=== PATIENT | female | born 1995 | race Caucasian/White ===

== ENCOUNTER 2019-10-26 00:56 | Emergency (ER) | payer BC, OTHER ==
--- NOTE | 2019-10-26 01:35 | EDM.PDOC ---
ED HPI GENERAL MEDICAL PROBLEM - General Chief Complaint: Upper Extremity Injury/Pain Stated Complaint: RIGHT SHOULDER INJURY Time Seen by Provider: 10/26/19 01:29 Source of Information: Reports: Patient History Limitations: Reports: No Limitations - History of Present Illness INITIAL COMMENTS - FREE TEXT/NARRATIVE: This is a 24-year-old female who presents with concerns of right shoulder pain. she was attempting to help a resident from falling when she had a distraction injury of the right arm while getting him into a wheelchair. She felt a pop. She had instant pain. She also feels as if her hand is "asleep' but sensation is intact. right shoulder Pain Score (Numeric/FACES): 6 - Related Data Allergies Allergy/AdvReac Type Severity Reaction Status Date / Time terbinafine Allergy Cannot Verified 10/26/19 01:09 Remember Home Meds: Home Meds Acetaminophen [Tylenol Extra Strength] 1,000 mg PO Q4HR PRN 04/12/18 [History] Ibuprofen 800 mg PO Q6HR PRN 04/12/18 [History] Past Medical History Musculoskeletal History: Reports: Fracture Endocrine/Metabolic History: Reports: Obesity/BMI 30+ - Infectious Disease History Infectious Disease History: Reports: Chicken Pox - Past Surgical History Musculoskeletal Surgical History: Reports: None Other Musculoskeletal Surgeries/Procedures:: abscess removed off of foot. Social & Family History - Tobacco Use Smoking Status *Q: Never Smoker - Caffeine Use Caffeine Use: Reports: Coffee - Recreational Drug Use Recreational Drug Use: No Review of Systems - Review of Systems Review Of Systems: See Below Constitutional: Reports: No Symptoms Eyes: Reports: No Symptoms Ears: Reports: No Symptoms Nose: Reports: No Symptoms Mouth/Throat: Reports: No Symptoms Respiratory: Reports: No Symptoms Cardiovascular: Reports: No Symptoms GI/Abdominal: Reports: No Symptoms Genitourinary: Reports: No Symptoms Musculoskeletal: Reports: Shoulder Pain Skin: Reports: No Symptoms Neurological: Reports: No Symptoms Psychiatric: Reports: No Symptoms ED EXAM, GENERAL - Physical Exam Exam: See Below Exam Limited By: No Limitations General Appearance: Alert, No Apparent Distress Ears: Normal External Exam Nose: Normal Inspection Throat/Mouth: Normal Inspection Head: Atraumatic, Normocephalic Neck: Normal Inspection Respiratory/Chest: No Respiratory Distress Cardiovascular: Regular Rate, Rhythm GI/Abdominal: Soft, Non-Tender Back Exam: Normal Inspection Extremities: Other (right shoulder: no deformity, no bruising or swelling, tenderness over AC joint and lateral humerus. Senation and strength intact through right upper extremity) Neurological: Alert, Oriented Psychiatric: Normal Affect, Normal Mood Skin Exam: Warm, Dry Course - Vital Signs Last Recorded V/S: Last Vital Signs Temp 36.6 C 10/26/19 01:07 Pulse 69 10/26/19 01:07 Resp 20 10/26/19 01:07 BP 133/86 10/26/19 01:07 Pulse Ox 96 10/26/19 01:07 - Orders/Labs/Meds Orders: Active Orders 24 hr Category Date Time Status Shoulder Comp Rt [CR] Stat Exams 10/26/19 01:16 Taken - Re-Assessments/Exams Free Text/Narrative Re-Assessment/Exam: 24 yo presents with acute right shoulder pain Happened after distraction injury while attempted to help [place] from [place] No deformity on exam. Does have some tenderness of the right AC joint, perhaps mild separation. No abnormality on wet read of XR, will send to radiologist for over-read Anticipate discharge with sling, ice, NSAIDS and follow up with PCP 10/26/19 01:51 Departure - Departure Time of Disposition: 01:59 Disposition: Home, Self-Care 01 Clinical Impression: Right shoulder pain Qualifiers: Chronicity: acute Qualified Code(s): M25.511 - Pain in right shoulder - Discharge Information Instructions: Shoulder Pain Referrals: Lindsey Shah PA [Primary Care Provider] - Forms: ED Department Discharge Additional Instructions: Please continue to keep your arm in the sling until your symptoms improve or you see your primary doctor. Ice the shoulder and use tylenol/ibuprofen for pain. Sepsis Event Note - Evaluation Sepsis Screening Result: No Definite Risk - Focused Exam Vital Signs: Vital Signs Temp Pulse Resp BP Pulse Ox 10/26/19 01:07 36.6 C 69 20 133/86 96 Date Exam was Performed: 10/26/19 Time Exam was Performed: 01:59 - My Orders Last 24 Hours: My Active Orders 10/26/19 01:16 Shoulder Comp Rt [CR] Stat - Assessment/Plan Last 24 Hours: My Active Orders 10/26/19 01:16 Shoulder Comp Rt [CR] Stat
--- NOTE | 2019-10-26 02:23 | CRLCR ---
INDICATION: Shoulder injury pain TECHNIQUE: Shoulder radiograph 3 views right COMPARISON: None FINDINGS: Bone: No acute fractures or aggressive bone lesions are identified. Joint: The glenohumeral joint is unremarkable. The acromioclavicular joint is unremarkable. Soft tissue: Unremarkable. The visualized hemithorax is unremarkable in appearance. No radiopaque foreign bodies are seen. IMPRESSION: 1. No acute osseous injuries or abnormalities are noted. Dictated by: Mike Casillas MD @ 10/26/2019 02:22:26 (Electronically Signed)
== END 2019-10-26 02:04 | disposition home or self-care (01) ==
LOC: JP.ED 00:56
DX: M25.511 Pain in right shoulder (principal); E66.9 Obesity, unspecified; Z68.35 Body mass index [BMI] 35.0-35.9, adult; X50.1XXA Overexertion from prolonged static or awkward postures, initial encounter; Y93.89 Activity, other specified
CPT/HCPCS: 73030-RT; 99283-25

== ENCOUNTER 2021-01-31 18:43 | Emergency (ER) | payer OTHER, BC ==
--- NOTE | 2021-01-31 20:25 | EDM.PDOC ---
ED HPI GENERAL MEDICAL PROBLEM - General Chief Complaint: Lower Extremity Injury/Pain Stated Complaint: R ANKLE INJURY Time Seen by Provider: 01/31/21 19:21 Source of Information: Reports: Patient History Limitations: Reports: No Limitations - History of Present Illness INITIAL COMMENTS - FREE TEXT/NARRATIVE: Sharyn is a 25-year-old female presenting to the ED for evaluation of right ankle pain and swelling after being thrown from a horse today while at work. The patient states that her foot went under her causing it invert when she landed on the [place]. Since then she has been unable to bear weight due to pain. Patient denies any previous injury to the ankle. She denies any distal numbness or tingling. She has good distal capillary refill and movement of the toes. He denies any other injury. In addition to training horses, the patient also works in hospice. Right Ankle Pain Score (Numeric/FACES): 6 - Related Data Allergies Allergy/AdvReac Type Severity Reaction Status Date / Time terbinafine Allergy Cannot Verified 01/31/21 19:17 Remember Home Meds: Home Meds LORazepam [Lorazepam] 0.5 mg PO ASDIRECTED 01/31/21 [History] Sertraline HCl [Zoloft] 100 mg PO DAILY 01/31/21 [History] Past Medical History HEENT History: Reports: Allergic Rhinitis Musculoskeletal History: Reports: Fracture Neurological History: Reports: Migraines Psychiatric History: Reports: Anxiety, Depression Endocrine/Metabolic History: Reports: Obesity/BMI 30+ - Infectious Disease History Infectious Disease History: Reports: Chicken Pox, Mononucleosis - Past Surgical History Musculoskeletal Surgical History: Reports: None Other Musculoskeletal Surgeries/Procedures:: abscess removed off of foot. Social & Family History - Tobacco Use Tobacco Use Status *Q: Never Tobacco User - Caffeine Use Caffeine Use: Reports: Coffee Review of Systems - Review of Systems Review Of Systems: See Below Constitutional: Reports: No Symptoms Eyes: Reports: No Symptoms Ears: Reports: No Symptoms Nose: Reports: No Symptoms Mouth/Throat: Reports: No Symptoms Respiratory: Reports: No Symptoms Cardiovascular: Reports: No Symptoms GI/Abdominal: Reports: No Symptoms Genitourinary: Reports: No Symptoms Musculoskeletal: Reports: Joint Pain (Right lateral ankle), Joint Swelling (Right lateral ankle) Skin: Reports: Bruising (Right lateral ankle and foot) Neurological: Reports: No Symptoms Psychiatric: Reports: No Symptoms ED EXAM, GENERAL - Physical Exam Exam: See Below Exam Limited By: No Limitations General Appearance: Alert, Mild Distress Head: Atraumatic, Normocephalic Extremities: Joint Swelling (Mild amount of soft tissue swelling around the lateral malleolus of the right ankle. There is ecchymosis and swelling along the lateral dorsal foot following the anterior talofibular ligament.) Neurological: Alert, Oriented, Normal Cognition, No Motor/Sensory Deficits Skin Exam: Warm, Dry, Ecchymosis (Bruising along the anterior talofibular ligament path of the right lateral dorsal foot.) Course - Vital Signs Last Recorded V/S: Last Vital Signs Temp 37.8 C 01/31/21 19:33 Pulse 94 01/31/21 19:33 Resp 18 01/31/21 19:33 BP 118/70 01/31/21 19:33 Pulse Ox 97 01/31/21 19:33 - Orders/Labs/Meds Orders: Active Orders 24 hr Category Date Time Status Ankle Min 3V Rt [CR] Stat Exams 01/31/21 19:21 Taken - Re-Assessments/Exams Free Text/Narrative Re-Assessment/Exam: 01/31/21 20:26 reviewed the x-rays of the right ankle showing no acute osseous abnormalities. There is minimal soft tissue swelling over the lateral malleolus. Departure - Departure Time of Disposition: 20:20 Disposition: Home, Self-Care 01 Clinical Impression: Inversion sprain of right ankle Qualifiers: Encounter type: initial encounter Qualified Code(s): S93.401A - Sprain of unspecified ligament of right ankle, initial encounter - Discharge Information Instructions: Ankle Sprain, Phase I Rehab-SportsMed Referrals: Lindsey Shah PA [Primary Care Provider] - Care Plan Goals: I recommend ice, elevation, ibuprofen, and rest of the ankle through the weekend. The ankle should be elevated above the level of the heart to reduce swelling. You may take ibuprofen 600 mg (3 tablets of Advil) by mouth every 6 hours for pain control. I would ice for 15 to 20 minutes every couple hours you are awake. You may use crutches to ambulate and wear the boot to prevent further injury while ambulating. Initially had like you nonweightbearing but by Wednesday or Wednesday should be able to start bearing weight partially with the use of crutches. You may not operate a motor vehicle while wearing the boot. A work note has been given to you describing this. I would like you to follow-up with your primary care provider towards the middle to latter part of next week for reevaluation. She may be able to release you earlier for returning to work if you are improving. Return to the ED should you develop any significant changes including blueness of the foot, coolness other than when icing, tingling or increased numbness, or significant additional injury. Sepsis Event Note (ED) - Evaluation Sepsis Screening Result: No Definite Risk - Focused Exam Vital Signs: Vital Signs Temp Pulse Resp BP Pulse Ox 01/31/21 19:33 37.8 C 94 18 118/70 97 - Problem List & Annotations (1) Inversion sprain of right ankle SNOMED Code(s): 66531206 Code(s): S93.401A - SPRAIN OF UNSPECIFIED LIGAMENT OF RIGHT ANKLE, INIT ENCNTR Status: Acute Priority: Medium Current Visit: Yes Qualifiers: Encounter type: initial encounter Qualified Code(s): S93.401A - Sprain of unspecified ligament of right ankle, initial encounter - Problem List Review Problem List Initiated/Reviewed/Updated: Yes - My Orders Last 24 Hours: My Active Orders 01/31/21 19:21 Ankle Min 3V Rt [CR] Stat - Assessment/Plan Last 24 Hours: My Active Orders 01/31/21 19:21 Ankle Min 3V Rt [CR] Stat
--- NOTE | 2021-02-03 14:07 | CR ---
Ankle Min 3V Rt CLINICAL HISTORY: Swelling, trauma FINDINGS: The soft tissues are normal. No acute fracture or dislocation is noted. Ankle mortise is intact. Articular surfaces are smooth Impression: Negative
== END 2021-01-31 20:39 | disposition home or self-care (01) ==
LOC: JP.ED 18:43
DX: S93.401A Sprain of unspecified ligament of right ankle, initial encounter (principal); Z88.8 Allergy status to other drugs, medicaments and biological substances; V80.919A Animal-rider injured in unspecified transport accident, initial encounter; Y93.52 Activity, horseback riding; Y99.0 Civilian activity done for income or pay
CPT/HCPCS: 73610-26-RT; 73610-RT; 99282; 99283-25

== ENCOUNTER 2021-12-18 04:11 | Emergency (ER) | payer BC, MEDICAID ==
[2021-12-18] MEDS ORDERED: Sodium Chloride 0.9% 10 ML Syringe FLUSH PRN (04:20)
[2021-12-18] MEDS ORDERED: Metoclopramide 10 MG/2 ML SDV IVPUSH ONE (04:20)
[2021-12-18] MEDS ORDERED: Sodium Chloride 0.9% 1,000 ML IV SCH (04:30)
== END 2021-12-18 06:00 | disposition home or self-care (01) ==
LOC: JP.ED 04:11
DX: O21.0 Mild hyperemesis gravidarum (principal); Z3A.11 11 weeks gestation of pregnancy; Z88.8 Allergy status to other drugs, medicaments and biological substances
CPT/HCPCS: 96374; 99283; 99283-25; J2765; J3490; J7030

== ENCOUNTER 2022-03-13 20:16 | Emergency (ER) | payer BC, MEDICAID | END 2022-03-13 21:08 | disposition home or self-care (01) | LOC: JP.ED 20:16 | DX: S90.31XA Contusion of right foot, initial encounter (principal); E66.9 Obesity, unspecified; Z88.8 Allergy status to other drugs, medicaments and biological substances; Z68.31 Body mass index [BMI] 31.0-31.9, adult; W20.8XXA Other cause of strike by thrown, projected or falling object, initial encounter | CPT/HCPCS: 73630-RT; 99281; 99283 ==

== ENCOUNTER 2023-03-02 20:14 | Emergency (ER) | payer BC, MEDICAID ==
[2023-03-02 21:22] LABS: BASOPHILS ABSOLUTE AUTO 0.05 K/uL (0.00-0.10); BASOPHILS PERCENT AUTO 0.6 % (0.1-1.3); EOSINOPHILS ABSOLUTE AUTO 0.04 K/uL (0.00-0.40); EOSINOPHILS PERCENT AUTO 0.5 % (0.0-5.4); HEMATOCRIT 42.5 % (34.3-46.0); HEMOGLOBIN 14.5 g/dL (11.2-15.5); IMMATURE GRAN ABSOLUTE AUTO 0.02 K/uL (0.00-0.23); IMMATURE GRAN PERCENT AUTO 0.2 % (0.0-0.7); LYMPHOCYTES PERCENT AUTO 21.9 % (11.4-47.7); MEAN CORPUSCULAR HEMOGLOBIN 31.2 pg (31.6-35.5); MEAN CORPUSCULAR HGB CONC 34.1 g/dL (31.6-35.5); MEAN CORPUSCULAR VOLUME 91.4 fL (81.4-99.0); MONOCYTES ABSOLUTE AUTO 0.93 K/uL (0.20-0.90); MONOCYTES PERCENT AUTO 10.7 % (3.3-12.6); NEUTROPHILS ABSOLUTE AUTO 5.74 K/uL (1.0-7.6); NEUTROPHILS PERCENT AUTO 66.1 % (40.0-78.1); PLATELET COUNT,PLT 262 K/uL (130-375); RED BLOOD CELL COUNT 4.65 M/uL (3.77-5.24); WHITE BLOOD CELL COUNT,WBC 8.7 K/uL (3.2-11.0)
== END 2023-03-02 22:29 | disposition home or self-care (01) ==
LOC: JP.ED 20:14
DX: J02.9 Acute pharyngitis, unspecified (principal); E66.9 Obesity, unspecified; Z88.8 Allergy status to other drugs, medicaments and biological substances; Z68.37 Body mass index [BMI] 37.0-37.9, adult
CPT/HCPCS: 36415; 85025; 86308; 87651-QW; 99283

== ENCOUNTER 2023-09-19 14:31 | Emergency (ER) | payer MEDICAID, OTHER ==
[2023-09-19] MEDS ORDERED: Sodium Chloride 0.9% 1,000 ML IV ONE (14:57)
[2023-09-19] MEDS ORDERED: Metoclopramide 10 MG/2 ML SDV IVPUSH ONE (14:57)
[2023-09-19] MEDS ORDERED: Sodium Chloride 0.9% 10 ML Syringe FLUSH PRN (14:57)
== END 2023-09-19 17:17 | disposition home or self-care (01) ==
LOC: JP.ED 14:31
DX: O21.1 Hyperemesis gravidarum with metabolic disturbance (principal); Z88.8 Allergy status to other drugs, medicaments and biological substances; Z79.899 Other long term (current) drug therapy; Z3A.08 8 weeks gestation of pregnancy
CPT/HCPCS: 96361; 96374; 99283; J2765; J7030

== ENCOUNTER 2023-12-24 16:51 | Emergency (ER) | payer MEDICAID ==
[2023-12-24 18:20] LABS: A/G RATIO 0.8 (1.2-2.2); ALANINE AMINOTRANSFERASE,ALT 15 U/L (12-78); ALBUMIN 3.2 g/dL (3.4-5.0); ALKALINE PHOSPHATASE 58 U/L (46-116); ANION GAP 13.3 mmol/L (5.0-14.0); ASPARTATE AMNIOTRANSFERASE,AST 11 U/L (15-37); BILIRUBIN TOTAL 0.2 mg/dL (0.2-1.0); BLOOD UREA NITROGEN,BUN 6 mg/dL (7-18); CALCIUM 8.6 mg/dL (8.5-10.1); CARBON DIOXIDE,CO2 26 mmol/L (21-32); CHLORIDE,CL 102 mmol/L (100-108); CREATININE 0.6 mg/dL (0.6-1.0); EST CRCL DRUG DOSING (CG) 127.85 mL/min; ESTIMATED GFR 127 mL/min (>60); GLUCOSE RANDOM 85 mg/dL (74-106); POTASSIUM,K 3.3 mmol/L (3.6-5.2); SODIUM,NA 138 mmol/L (140-148)
[2023-12-24] MEDS: Acetaminophen 500 MG Tab PO ONE (18:55)
[2023-12-24] MEDS: Acetaminophen/HYDROcodone 325-5 MG Tab PO ONE (18:58)
== END 2023-12-24 19:22 | disposition home or self-care (01) ==
LOC: JP.ED 16:51
DX: O99.891 Other specified diseases and conditions complicating pregnancy (principal); M53.3 Sacrococcygeal disorders, not elsewhere classified; Z3A.21 21 weeks gestation of pregnancy; Z88.8 Allergy status to other drugs, medicaments and biological substances; Z86.16 Personal history of COVID-19
CPT/HCPCS: 36415; 80053; 99283; A9270

== ENCOUNTER 2024-01-23 20:00 | Emergency (ER) | payer MEDICAID ==
[2024-01-23] MEDS: Ketorolac 30 MG/ML SDV IM ONE (20:46)
[2024-01-23 20:52] LABS: APPEARANCE,URINE SLIGHTLY CLOUDY (CLEAR); BILIRUBIN,URINE NEGATIVE (NEGATIVE); COLOR,URINE YELLOW (YELLOW); GLUCOSE,URINE NEGATIVE (NEGATIVE); KETONES,URINE NEGATIVE (NEGATIVE); LEUKOCYTE ESTERASE,URINE TRACE (NEGATIVE); NITRITE,URINE NEGATIVE (NEGATIVE); OCCULT BLOOD,URINE MODERATE (NEGATIVE); PROTEIN,URINE TRACE mg/dL (NEGATIVE); UROBILINOGEN,URINE 0.2 EU/dL (0.2-1.0)
[2024-01-23 20:58] LABS: AMORPHOUS SEDIMENT,URINE FEW; MUCUS,URINE FEW
[2024-01-23 20:59] LABS: BACTERIA,URINE MODERATE; EPITHELIAL CELLS,URINE MODERATE
== END 2024-01-23 21:55 | disposition home or self-care (01) ==
LOC: JP.ED 20:00
DX: O26.833 Pregnancy related renal disease, third trimester (principal); N13.2 Hydronephrosis with renal and ureteral calculous obstruction; Z88.8 Allergy status to other drugs, medicaments and biological substances; Z86.16 Personal history of COVID-19; Z3A.27 27 weeks gestation of pregnancy
CPT/HCPCS: 81001; 96372; 99284; J1885